=== PATIENT | female | born 1960 | race Caucasian/White ===

== ENCOUNTER 2017-01-25 14:22 | Emergency (ER) | payer OTHER ==
[~2017-01-25] VITALS: Ht 162.6 cm; Wt 59.5 kg
[~2017-01-25 14:22] MED LIST: NOHOMEMEDS
[2017-01-25 14:25] VITALS: BP 108/81
[2017-01-25] MEDS ORDERED: ERYTHROMYC1 APPLICAT BOTH EYES (16:03)
== END 2017-01-25 16:54 | disposition home or self-care (01) ==
LOC: EME 14:22
DX: H57.8 Other specified disorders of eye and adnexa (principal)
CPT/HCPCS: 99281; 99284